=== PATIENT | male | born 2000 | race Caucasian/White ===

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

== ENCOUNTER 2022-03-28 05:23 | Emergency (ER) | payer MEDICAID ==
[~2022-03-28] VITALS: Ht 180.3 cm; Wt 63.4 kg
[~2022-03-28 05:23] MED LIST: CYCL5TAB PO; NAPR-681 PO
[2022-03-28 05:31] VITALS: BP 122/60
[2022-03-28] MEDS ORDERED: KETO15CR2 TP (07:17)
== END 2022-03-28 07:49 | disposition home or self-care (01) ==
LOC: ER 05:23
DX: S91.202A Unspecified open wound of left great toe with damage to nail, initial encounter (principal); X58.XXXA Exposure to other specified factors, initial encounter; Y93.89 Activity, other specified; Y92.9 Unspecified place or not applicable
CPT/HCPCS: 99281